=== PATIENT | male | born 1995 | race Caucasian/White ===

== ENCOUNTER 2017-12-28 15:35 | Emergency (ER) | payer BC, OTHER ==
[2017-12-28 15:44] VITALS: BP 135/75
--- NOTE | 2017-12-28 15:46 | EDPHY ---
H & P Stated Complaint: Right eye irritation Time Seen by Provider: 12/28/17 15:46 HPI/ROS: CHIEF COMPLAINT: Right eye erythema and pain HISTORY OF PRESENT ILLNESS: The patient presents the emergency department with complaints of right eye erythema and pain for the past 2 days. The patient denies history of trauma or possibility of a known foreign body. The patient does wear contact lenses. He has been wearing his eyeglasses for the past day. The patient denies any infectious symptoms. He denies significant changes to his visual acuity. REVIEW OF SYSTEMS: A comprehensive 10 point review of systems is otherwise negative aside from elements mentioned in the history of present illness. Source: Patient Exam Limitations: No limitations - Medical/Surgical History Hx Asthma: No Hx Chronic Respiratory Disease: No Hx Diabetes: No Hx Cardiac Disease: No Hx Renal Disease: No Hx Cirrhosis: No Hx Alcoholism: No Hx HIV/AIDS: No Hx Splenectomy or Spleen Trauma: No Other PMH: denies - Social History Smoking Status: Never smoked - Physical Exam Exam: Visual Acuity: noted from Nurse's notes. Pupils: equal round and reactive to light EOMI Skin: no proptosis, no periorbital erythema or swelling, no vesicles Conjunctivae: Right conjunctiva injected Cornea: exam with fluorescein shows small corneal abrasion to the right cornea Anterior chamber: normal, no hyphema or hypopyon Constitutional: Initial Vital Signs Temperature (C) 36.7 C 12/28/17 15:40 Respiratory Rate 16 12/28/17 15:40 Blood Pressure 135/75 H 12/28/17 15:40 O2 Sat (%) 95 12/28/17 15:40 O2 Delivery Mode Room Air Allergies/Adverse Reactions: No Known Allergies Allergy (Unverified 12/28/17 15:40) Home Medications: Medication Instructions Recorded NK [No Known Home Meds] 12/28/17 Medical Decision Making ED Course/Re-evaluation: The patient presents to the ED with a small corneal abrasion in the setting of contact lens use. The patient has no evidence of an obvious ulcer or corneal foreign body. The patient will be started on Ocuflox eyedrops. The patient is advised not to wear his contacts until his symptoms have entirely resolved. He has been referred to our on-call lining vamper Dr. Hair for recheck. Departure - Departure Disposition: Home, Routine, Self-Care Clinical Impression: Corneal abrasion Condition: Good Instructions: Corneal Abrasion (ED), Ofloxacin (Into the eye) Additional Instructions: 1. Ocuflox eyedrops 1 drop to right eye 5 times a day for next 7 days. 2. Please follow up with Dr. Hair from Ophthalmology for recheck for any ongoing symptoms. 3. Do not wear your contact lenses until your symptoms have entirely resolved. Referrals: Lexa Hair MD [Medical Doctor] - As per Instructions
[2017-12-28] MEDS ORDERED: PROPARACAINE/FLUORESCEIN SOD 5 ML OPHT.BTL ONE (15:53)
[2017-12-28] MEDS ORDERED: OFLOXACIN 0.3% SOLN PREPACK OPHT.BTL TAKEHOME ONE (16:02)
== END 2017-12-28 16:19 | disposition home or self-care (01) ==
DX: S05.01XA Injury of conjunctiva and corneal abrasion without foreign body, right eye, initial encounter (principal); X58.XXXA Exposure to other specified factors, initial encounter